=== PATIENT | female | born 1965 | race Caucasian/White ===

== ENCOUNTER 2017-11-04 11:26 | Emergency (ER) | payer OTHER ==
[2017-11-04 11:46] VITALS: BP 105/48
--- NOTE | 2017-11-04 13:26 | RAD ---
HISTORY: Left knee pain, subacute trauma COMPARISONS: July 09, 2013 VIEWS: 4, Frontal, lateral, axial, and oblique views of the left knee FINDINGS: BONE DENSITY: There is diffuse osteopenia. BONES: There is no displaced fracture. JOINTS: There is mild medial compartment joint space narrowing with mild medial compartment and patellofemoral osteophyte formation. There is no suprapatellar joint effusion or lipohemarthrosis. ALIGNMENT: There is no dislocation. SOFT TISSUES: Unremarkable. OTHER FINDINGS: None. IMPRESSION: 1. OSTEOPENIA. 2. MILD OSTEOARTHRITIS. 3. NO ACUTE OSSEOUS INJURY. IF SYMPTOMS PERSIST, RECOMMEND REPEAT IMAGING.
--- NOTE | 2017-11-04 13:48 | UC ---
Knee Pain HPI - HPI Summary HPI Summary: 52 y/o female with knee pain after stepping off a step 3 days ago, no twisting motion, no fall, + mild bruising, pain afterwards, worse with bending, stairs, feels knee "shifted", no instability. no prior knee injuries, works at [employer]. pain at bilateral sides, no bruising, no fever, chillls. - History of Current Complaint Chief Complaint: UCLowerExtremity Stated Complaint: KNEE INJURY Time Seen by Provider: 11/04/17 13:02 Hx Obtained From: Patient Hx Last Menstrual Period: 3 YEARS AGO ?: No Severity Initially: Moderate Severity Currently: Moderate Pain Intensity: 5 Pain Scale Used: 0-10 Numeric - Allergies/Home Medications Allergies/Adverse Reactions: Allergies Allergy/AdvReac Type Severity Reaction Status Date / Time codeine Allergy Itching Verified 11/04/17 11:37 PMH/Surg Hx/FS Hx/Imm Hx Previously Healthy: Yes Other History Of: Negative For: Anticoagulant Therapy - Surgical History Surgical History: Yes Surgery Procedure, Year, and Place: rue n y gastric bypass 2002. tonsils 1977- [facility]. TUMMY TUCK IN 2003. COLON SURGERY FOR BLOCKAGE. SURGERY FOR VARICOSE VEINS- [place]- TOOK LONGER TOO WAKE UP- 11/2014. RIGHT WRIST CARPAL TUNNEL RELEASE AND ULNAR NERVE- 2 YEARS AGO- [facility]. RIGHT KNEE-1982 - Family History Known Family History: Positive: Cardiac Disease - father in 40's of heart disease, PGM in 30's of heart diseas, Other - mother ovarian ca - Social History Alcohol Use: Occasionally Substance Use Type: None Smoking Status (MU): Never Smoked Tobacco - Immunization History Most Recent Tetanus Shot: 2010 Review of Systems Musculoskeletal: Arthralgia, Decreased ROM, Myalgia Is Patient Immunocompromised?: No All Other Systems Reviewed And Are Negative: Yes Physical Exam Triage Information Reviewed: Yes Appearance: Well-Appearing, No Pain Distress, Well-Nourished Vital Signs: Initial Vital Signs Temp 98.4 F 11/04/17 11:39 Pulse 52 11/04/17 11:39 Resp 18 11/04/17 11:39 BP 105/48 11/04/17 11:39 Pulse Ox 98 11/04/17 11:39 Eyes: Positive: Conjunctiva Clear Musculoskeletal: Positive: Other: - + yordan,L, + patellar grind, medial joint line tendernss, mild effusion, no instability mandi/ marnie stress, - ACL, PCL Neurological Exam: Normal Psychological Exam: Normal Skin Exam: Normal Knee Pain Course/Dx - Course Course Of Treatment: likely meniscal tear, medially. Ortho called, patient able to be seen today - Differential Dx/Diagnosis Differential Diagnosis/HQI/PQRI: Cellulitis, Contusion Provider Diagnoses: L knee injury, likely medial meniscus tear. Discharge - Sign-Out/Discharge Documenting (check all that apply): Discharge - Discharge Plan Condition: Good Disposition: HOME Patient Education Materials: Knee Pain (ED), Meniscus Tear (ED) Forms: *Work Release Referrals: Izzy Berman MD [Primary Care Provider] - Landry Zaragoza MD [Medical Doctor] - Additional Instructions: - Motrin 400-600mg every 6 hours as needed for pain - Follow up with orthopedics - Dr. zaragoza, [address] - Ice, Rest - Work note given - Billing Disposition and Condition Condition: GOOD Disposition: HOME
== END 2017-11-04 13:51 | disposition home or self-care (01) ==
LOC: UCEAST 11:26
DX: S89.92XA Unspecified injury of left lower leg, initial encounter (principal); X58.XXXA Exposure to other specified factors, initial encounter; Y93.9 Activity, unspecified; Y92.9 Unspecified place or not applicable; Z88.5 Allergy status to narcotic agent
CPT/HCPCS: 99211; G0463

== ENCOUNTER 2018-06-01 12:10 | Emergency (ER) | payer BC, OTHER ==
[2018-06-01 12:14] VITALS: BP 133/69
--- NOTE | 2018-06-01 12:22 | ED ---
Laceration/Wound HPI - HPI Summary HPI Summary: 52 year old female presents with left thumb laceration today. States she cut it at work on a knife. She states the area is not actively bleeding. Tetanus up-to-date. Has full range of motion of finger. No numbness or tingling. is not diabetic. - History of Current Complaint Stated Complaint: LT THUMB LAC Time Seen by Provider: 06/01/18 12:16 Hx Last Menstrual Period: 3 YEARS AGO Pain Intensity: 2 - Additional Pertinent History Primary Care Physician: SAKSHI - Allergy/Home Medications Allergies/Adverse Reactions: Allergies Allergy/AdvReac Type Severity Reaction Status Date / Time codeine Allergy Itching Verified 06/01/18 12:16 PMH/Surg Hx/FS Hx/Imm Hx Endocrine/Hematology History: Reports: Hx Thyroid Disease - ON MEDICATION FOR, Hx Anemia - STATES TENDS TO BE LOW, BRUISES EASILY Denies: Hx Anticoagulant Therapy, Hx Diabetes Cardiovascular History: Reports: Hx Angina, Hx Hypotension, Other Cardiovascular Problems/Disorders - "HOLE IN HEART" -PATIENT STATES WAS TOLD BY DR. COLLINS Denies: Hx Coronary Artery Disease, Hx Hypercholesterolemia, Hx Hypertension , Hx Myocardial Infarction, Hx Peripheral Vascular Disease Respiratory History: Reports: Hx Sleep Apnea Denies: Hx Asthma, Hx Chronic Obstructive Pulmonary Disease (COPD) GI History: Reports: Hx Jaundice - , Other GI Disorders - gastric bypass 2001 Denies: Hx Ulcer Comment Only: Hx Gall Bladder Disease - removed during gastric bipass, Hx Gastroesophageal Reflux Disease - ACID REFLUX Musculoskeletal History: Reports: Hx Arthritis - RIGHT HAND, Hx Tendonitis - RT ARM Denies: Hx Osteoporosis Sensory History: Reports: Hx Contacts or Glasses - GLASSES Denies: Hx Cataracts, Hx Glaucoma, Hx Hearing Aid Opthamlomology History: Reports: Hx Contacts or Glasses - GLASSES Denies: Hx Cataracts, Hx Glaucoma Neurological History: Reports: Hx Migraine - WEEKLY- TREATS WITH ASPIRIN & AND ROUTINE MEDICATION FOR-hasnt had recently, Hx Seizures - LAST 07/2015- ON MEDICATION FOR Denies: Hx Headaches, Hx Transient Ischemic Attacks (TIA) Psychiatric History: Reports: Hx Anxiety - on medication for, Hx Depression - ON MEDICATION FOR - Cancer History Hx Chemotherapy: No Hx Radiation Therapy: No - Surgical History Surgery Procedure, Year, and Place: rue n y gastric bypass 2002. tonsils 1977- [facility]. TUMMY TUCK IN 2003. COLON SURGERY FOR BLOCKAGE. SURGERY FOR VARICOSE VEINS- [place]- TOOK LONGER TOO WAKE UP- 11/2014. RIGHT WRIST CARPAL TUNNEL RELEASE AND ULNAR NERVE- 2 YEARS AGO- [facility]. RIGHT KNEE-1982 Hx Anesthesia Reactions: Yes - SLOW TO WAKE UP, NAUSEA - Immunization History Date of Tetanus Vaccine: unsure Date of Influenza Vaccine: none Infectious Disease History: No Infectious Disease History: Denies: Hx Hepatitis, Hx Human Immunodeficiency Virus (HIV), Traveled Outside the [place] in Last 30 Days - Family History Known Family History: Positive: Cardiac Disease - father in 40's of heart disease, PGM in 30's of heart diseas, Other - mother ovarian ca - Social History Alcohol Use: Occasionally Hx Substance Use: No Substance Use Type: Reports: None Hx Tobacco Use: No Smoking Status (MU): Never Smoked Tobacco Review of Systems Negative: Fever Negative: Chest Pain Negative: Shortness Of Breath Positive: Myalgia - left laceration thumb All Other Systems Reviewed And Are Negative: Yes Physical Exam Triage Information Reviewed: Yes Vital Signs On Initial Exam: Initial Vitals Temp Pulse Resp BP Pulse Ox 96.6 F 60 16 133/69 98 06/01/18 12:12 06/01/18 12:12 06/01/18 12:12 06/01/18 12:12 06/01/18 12:12 Vital Signs Reviewed: Yes Appearance: Positive: Well-Appearing Skin: Positive: Warm, Dry, Other - 1cm superficial laceration near left nail Head/Face: Positive: Normal Head/Face Inspection Eyes: Positive: Normal, Conjunctiva Clear ENT: Positive: Pharynx normal Respiratory/Lung Sounds: Positive: Clear to Auscultation, Breath Sounds Present Cardiovascular: Positive: Normal, RRR Musculoskeletal: Positive: Normal Neurological: Positive: Normal Psychiatric: Positive: Normal Procedures - Laceration/Wound Repair 1 Location: Other - left thumb laceration Length, Depth and Shape: 1cm superficial Irrigated w/ Saline (ccs): 50 Closure: Skin Adhesive Diagnostics - Vital Signs Vital Signs Temp Pulse Resp BP Pulse Ox 06/01/18 12:12 96.6 F 60 16 133/69 98 - Laboratory Lab Statement: Any lab studies that have been ordered have been reviewed, and results considered in the medical decision making process. Laceration Repair Course/Dx - Course Course Of Treatment: 52 year old female presents with left thumb laceration today. States she cut it at work on a knife. She states the area is not actively bleeding. Tetanus up-to-date. Has full range of motion of finger. No numbness or tingling. On exam has 1cm superficial laceration to left thumb. Clean area and place glued. Told to keep the area clean dry. Patient since agrees with plan. - Differential Dx Differental Diagnoses: Abrasion, Avulsion, Laceration - Clinical Impression Provider Diagnoses: Laceration of left thumb Discharge - Sign-Out/Discharge Documenting (check all that apply): Patient Departure - Discharge Plan Condition: Good Disposition: HOME Patient Education Materials: Skin Adhesive Care (ED) Forms: *Work Release Referrals: Izzy Berman MD [Primary Care Provider] - Additional Instructions: Take Tylenol or ibuprofen for pain as needed every 6 hours Keep dry for 24 hours Glue will fall off on own Avoid scrubbing area Return to ED if develop any signs of infection or any new or worsening symptoms - Billing Disposition and Condition Condition: GOOD Disposition: Home
== END 2018-06-01 12:35 | disposition home or self-care (01) ==
LOC: ED 12:10
DX: S61.012A Laceration without foreign body of left thumb without damage to nail, initial encounter (principal); W26.0XXA Contact with knife, initial encounter; Y92.9 Unspecified place or not applicable; Y99.0 Civilian activity done for income or pay; E07.9 Disorder of thyroid, unspecified; D64.9 Anemia, unspecified
CPT/HCPCS: 12001; 99281

== ENCOUNTER 2018-08-13 06:50 | Emergency (ER) | payer BC ==
[2018-08-13] MEDS ORDERED: Ondansetron ODT TAB* 4 MG ONE (07:19)
[2018-08-13] MEDS ORDERED: Ondansetron ODT TAB* 4 MG SL ONE (07:19)
--- NOTE | 2018-08-13 07:25 | ED ---
Laceration/Wound HPI - HPI Summary HPI Summary: Patient presents with laceration to the R dorsal side of the first MCP measuring 1.5cm and irregular from a broken glass. This occurred at 9pm last evening. Bleeding was controlled. Endorses 5/10 pain only when palpated. Denies N/T. Denies color or temp changes. NV intact. Denies other concerns or complaints today. Tetanus UTD x 5 years ago. No anti-coag. - History of Current Complaint Stated Complaint: RIGHT HAND LAC Time Seen by Provider: 08/13/18 06:56 Hx Obtained From: Patient Hx Last Menstrual Period: 3 YEARS AGO Mechanism of Injury: Sharp/Blunt Trauma Onset/Duration: Sudden Onset Aggravating: Movement Alleviating: Compression Timing: Constant Onset Severity: Mild Current Severity: Mild Pain Intensity: 7 Pain Scale Used: 0-10 Numeric Associated Signs & Symptoms: Negative Related Hx: Dominant Hand (Right) - Additional Pertinent History Primary Care Physician: SAKSHI - Allergy/Home Medications Allergies/Adverse Reactions: Allergies Allergy/AdvReac Type Severity Reaction Status Date / Time codeine Allergy Itching Verified 08/13/18 06:58 PMH/Surg Hx/FS Hx/Imm Hx Previously Healthy: Yes Endocrine/Hematology History: Reports: Hx Thyroid Disease - ON MEDICATION FOR, Hx Anemia - STATES TENDS TO BE LOW, BRUISES EASILY Denies: Hx Anticoagulant Therapy, Hx Diabetes Cardiovascular History: Reports: Hx Angina, Hx Hypotension, Other Cardiovascular Problems/Disorders - "HOLE IN HEART" -PATIENT STATES WAS TOLD BY DR. COLLINS Denies: Hx Coronary Artery Disease, Hx Hypercholesterolemia, Hx Hypertension , Hx Myocardial Infarction, Hx Peripheral Vascular Disease Respiratory History: Reports: Hx Sleep Apnea Denies: Hx Asthma, Hx Chronic Obstructive Pulmonary Disease (COPD) GI History: Reports: Hx Jaundice - INFANT, Other GI Disorders - gastric bypass 2001 Denies: Hx Ulcer Comment Only: Hx Gall Bladder Disease - removed during gastric bipass, Hx Gastroesophageal Reflux Disease - ACID REFLUX Musculoskeletal History: Reports: Hx Arthritis - RIGHT HAND, Hx Tendonitis - RT ARM Denies: Hx Osteoporosis Sensory History: Reports: Hx Contacts or Glasses - GLASSES Denies: Hx Cataracts, Hx Glaucoma, Hx Hearing Aid Opthamlomology History: Reports: Hx Contacts or Glasses - GLASSES Denies: Hx Cataracts, Hx Glaucoma Neurological History: Reports: Hx Migraine - WEEKLY- TREATS WITH ASPIRIN & AND ROUTINE MEDICATION FOR-hasnt had recently, Hx Seizures - LAST 07/2015- ON MEDICATION FOR Denies: Hx Headaches, Hx Transient Ischemic Attacks (TIA) Psychiatric History: Reports: Hx Anxiety - on medication for, Hx Depression - ON MEDICATION FOR - Cancer History Hx Chemotherapy: No Hx Radiation Therapy: No - Surgical History Surgery Procedure, Year, and Place: rue n y gastric bypass 2002. tonsils 1977- [facility]. TUMMY TUCK IN 2003. COLON SURGERY FOR BLOCKAGE. SURGERY FOR VARICOSE VEINS- [place]- TOOK LONGER TOO WAKE UP- 11/2014. RIGHT WRIST CARPAL TUNNEL RELEASE AND ULNAR NERVE- 2 YEARS AGO- [facility]. RIGHT KNEE-1982 Hx Anesthesia Reactions: Yes - SLOW TO WAKE UP, NAUSEA - Immunization History Date of Tetanus Vaccine: unsure Date of Influenza Vaccine: none Hx Pertussis Vaccination: No Immunizations Up to Date: Yes Infectious Disease History: No Infectious Disease History: Denies: Hx Hepatitis, Hx Human Immunodeficiency Virus (HIV), Traveled Outside the [place] in Last 30 Days - Family History Known Family History: Positive: Cardiac Disease - father in 40's of heart disease, PGM in 30's of heart diseas, Other - mother ovarian ca - Social History Occupation: Employed Full-time Lives: With Family Alcohol Use: Occasionally Hx Substance Use: No Substance Use Type: Reports: None Hx Tobacco Use: No Smoking Status (MU): Never Smoked Tobacco Review of Systems Negative: Fever, Chills, Fatigue, Skin Diaphoresis Negative: Palpitations, Chest Pain Negative: Shortness Of Breath, Cough Genitourinary: Negative Positive: no symptoms reported, see HPI Negative: Arthralgia, Myalgia Skin: Negative Neurological: Negative All Other Systems Reviewed And Are Negative: Yes Physical Exam Triage Information Reviewed: Yes Vital Signs On Initial Exam: Initial Vitals Temp Pulse Resp BP Pulse Ox 97.8 F 57 16 116/57 97 08/13/18 06:50 08/13/18 06:50 08/13/18 06:50 08/13/18 06:50 08/13/18 06:50 Vital Signs Reviewed: Yes Appearance: Positive: Well-Appearing, Well-Nourished Skin: Positive: Skin Color Reflects Adequate Perfusion Head/Face: Positive: Normal Head/Face Inspection Eyes: Positive: EOMI, CHRISTIAN, Conjunctiva Clear Neck: Positive: Supple, No Lymphadenopathy Respiratory/Lung Sounds: Positive: Clear to Auscultation, Breath Sounds Present Cardiovascular: Positive: RRR, Pulses are Symmetrical in both Upper and Lower Extremities Musculoskeletal: Positive: Normal, Strength/ROM Intact Neurological: Positive: Speech Normal Psychiatric: Positive: Normal, Affect/Mood Appropriate AVPU Assessment: Alert Procedures - Laceration/Wound Repair 1 Location: upper extremity Description: Irregular Anesthesia: Local Length, Depth and Shape: 1.5cm, semi-circular Betadine Prep?: No Laceration/Wound Explored: clean Suture Type: Prolene Number of Sutures: 3 Layer Closure?: No Sterile Dressing Applied?: No Diagnostics - Vital Signs Vital Signs Temp Pulse Resp BP Pulse Ox 08/13/18 06:50 97.8 F 57 16 116/57 97 - Laboratory Lab Statement: Any lab studies that have been ordered have been reviewed, and results considered in the medical decision making process. Laceration Repair Course/Dx - Course Course Of Treatment: Timeout obtained. Cleansed wound thoroughly with NS. Jet irrigation. Laceration repaired with 5-0 sutures. Adequate local anesthesia. 3 sutures placed. Patient became nauseous and diaphoretic, placed in supine position and patient improved. Suture removal in 6 days. Patient agrees with plan. - Differential Dx Differental Diagnoses: Avulsion, Laceration - Clinical Impression Provider Diagnoses: Laceration Discharge - Sign-Out/Discharge Documenting (check all that apply): Patient Departure - Discharge Plan Condition: Stable Disposition: HOME Patient Education Materials: Laceration (ED), Care For Your Stitches (ED) Forms: *Work Release Referrals: Izzy Berman MD [Primary Care Provider] - Additional Instructions: After 24 hours, leave open to air Cleanse wound gently everyday with soap and water Use gloves if you are working Suture removal in 5-7 days If the area becomes dry, you may apply some antibiotic ointment. - Billing Disposition and Condition Condition: STABLE Disposition: Home
[2018-08-13 07:42] VITALS: BP 129/40
== END 2018-08-13 07:41 | disposition home or self-care (01) ==
LOC: ED 06:50
DX: S61.411A Laceration without foreign body of right hand, initial encounter (principal); W25.XXXA Contact with sharp glass, initial encounter; E07.9 Disorder of thyroid, unspecified; D64.9 Anemia, unspecified; K21.9 Gastro-esophageal reflux disease without esophagitis; G47.30 Sleep apnea, unspecified; F41.9 Anxiety disorder, unspecified; F32.9 Major depressive disorder, single episode, unspecified
CPT/HCPCS: 12001; 99282; A9270-GY

== ENCOUNTER 2018-08-17 13:51 | Emergency (ER) | payer BC ==
--- NOTE | 2018-08-17 15:15 | ED ---
Laceration/Wound HPI - HPI Summary HPI Summary: Patient is a 53-year-old female presents to the ED with laceration removal request. She had 3 sutures placed 6 days ago. Denies any redness. Denies any drainage. Denies any fevers, sweats, chills. She offers no other complaints at this time. - History of Current Complaint Stated Complaint: SUTURE REMOVAL Time Seen by Provider: 08/17/18 13:53 Hx Obtained From: Patient Hx Last Menstrual Period: 3 YEARS AGO Mechanism of Injury: Sharp/Blunt Trauma Onset/Duration: Sudden Onset Aggravating: Movement Alleviating: Compression Timing: Constant Onset Severity: Mild Current Severity: None Pain Intensity: 0 Pain Scale Used: 0-10 Numeric Associated Signs & Symptoms: Negative - Additional Pertinent History Primary Care Physician: SAKSHI - Allergy/Home Medications Allergies/Adverse Reactions: Allergies Allergy/AdvReac Type Severity Reaction Status Date / Time codeine Allergy Itching Verified 08/17/18 13:55 PMH/Surg Hx/FS Hx/Imm Hx Previously Healthy: Yes Endocrine/Hematology History: Reports: Hx Thyroid Disease - ON MEDICATION FOR, Hx Anemia - STATES TENDS TO BE LOW, BRUISES EASILY Denies: Hx Anticoagulant Therapy, Hx Diabetes Cardiovascular History: Reports: Hx Angina, Hx Hypotension, Other Cardiovascular Problems/Disorders - "HOLE IN HEART" -PATIENT STATES WAS TOLD BY DR. COLLINS Denies: Hx Coronary Artery Disease, Hx Hypercholesterolemia, Hx Hypertension , Hx Myocardial Infarction, Hx Peripheral Vascular Disease Respiratory History: Reports: Hx Sleep Apnea Denies: Hx Asthma, Hx Chronic Obstructive Pulmonary Disease (COPD) GI History: Reports: Hx Jaundice - INFANT, Other GI Disorders - gastric bypass 2001 Denies: Hx Ulcer Comment Only: Hx Gall Bladder Disease - removed during gastric bipass, Hx Gastroesophageal Reflux Disease - ACID REFLUX Musculoskeletal History: Reports: Hx Arthritis - RIGHT HAND, Hx Tendonitis - RT ARM Denies: Hx Osteoporosis Sensory History: Reports: Hx Contacts or Glasses - GLASSES Denies: Hx Cataracts, Hx Glaucoma, Hx Hearing Aid Opthamlomology History: Reports: Hx Contacts or Glasses - GLASSES Denies: Hx Cataracts, Hx Glaucoma Neurological History: Reports: Hx Migraine - WEEKLY- TREATS WITH ASPIRIN & AND ROUTINE MEDICATION FOR-hasnt had recently, Hx Seizures - LAST 07/2015- ON MEDICATION FOR Denies: Hx Headaches, Hx Transient Ischemic Attacks (TIA) Psychiatric History: Reports: Hx Anxiety - on medication for, Hx Depression - ON MEDICATION FOR - Cancer History Hx Chemotherapy: No Hx Radiation Therapy: No - Surgical History Surgery Procedure, Year, and Place: rue n y gastric bypass 2002. tonsils 1977- [facility]. TUMMY TUCK IN 2003. COLON SURGERY FOR BLOCKAGE. SURGERY FOR VARICOSE VEINS- [place]- TOOK LONGER TOO WAKE UP- 11/2014. RIGHT WRIST CARPAL TUNNEL RELEASE AND ULNAR NERVE- 2 YEARS AGO- [facility] [place]. RIGHT KNEE-1982 Hx Anesthesia Reactions: Yes - SLOW TO WAKE UP, NAUSEA - Immunization History Date of Tetanus Vaccine: unsure Date of Influenza Vaccine: none Infectious Disease History: No Infectious Disease History: Denies: Hx Hepatitis, Hx Human Immunodeficiency Virus (HIV), Traveled Outside the [place] in Last 30 Days - Family History Known Family History: Positive: Cardiac Disease - father in 40's of heart disease, PGM in 30's of heart diseas, Other - mother ovarian ca - Social History Alcohol Use: Occasionally Hx Substance Use: No Substance Use Type: Reports: None Hx Tobacco Use: No Smoking Status (MU): Never Smoked Tobacco Review of Systems All Other Systems Reviewed And Are Negative: Yes Physical Exam Vital Signs On Initial Exam: Initial Vitals Temp Pulse Resp BP Pulse Ox 97.9 F 57 15 117/57 100 08/17/18 13:53 08/17/18 13:53 08/17/18 13:53 08/17/18 13:53 08/17/18 13:53 Diagnostics - Vital Signs Vital Signs Temp Pulse Resp BP Pulse Ox 08/17/18 13:53 97.9 F 57 15 117/57 100 - Laboratory Lab Statement: Any lab studies that have been ordered have been reviewed, and results considered in the medical decision making process. Laceration Repair Course/Dx - Course Course Of Treatment: 3 sutures removed. Patient tolerated well. - Clinical Impression Provider Diagnoses: Visit for suture removal Discharge - Sign-Out/Discharge Documenting (check all that apply): Patient Departure - Discharge Plan Condition: Stable Disposition: HOME Referrals: Izzy Berman MD [Primary Care Provider] - - Billing Disposition and Condition Condition: STABLE Disposition: Home
[2018-08-17 15:44] VITALS: BP 00/00
== END 2018-08-17 15:16 | disposition home or self-care (01) ==
LOC: ED 13:51
DX: S61.411D Laceration without foreign body of right hand, subsequent encounter (principal); W25.XXXD Contact with sharp glass, subsequent encounter; E07.9 Disorder of thyroid, unspecified; Z88.5 Allergy status to narcotic agent

== ENCOUNTER 2018-09-11 10:03 | Observation (INO) | payer BC ==
[2018-09-11 11:07] LABS: ABS Basophils 0 10^3/ul (0-0.2); ABS Eosinophils 0.2 10^3/ul (0-0.6); ABS Lymphocytes 1.4 10^3/ul (1.0-4.8); ABS Monocytes 0.3 10^3/ul (0-0.8); ABS Nucleated RBC 0 10^3/ul; Eosinophil % 5.2 %; Hematocrit 37 % (35-47); Hemoglobin 12.7 g/dl (12.0-16.0); Lymphocyte % 36.6 %; Mean Corpuscular HGB Conc 34 g/dl (31-36); Mean Corpuscular Hemoglobin 34 pg (27-31); Mean Corpuscular Volume 98 fL (80-97); Mean Platelet Volume 7.7 fL (7.4-10.4); Nucleated Red Blood Cells % 0; Platelet Count 186 10^3/ul (150-450); Red Blood Count 3.78 10^6/ul (4.00-5.40); Red Cell Distribution Width 13 % (10.5-15); White Blood Count 3.9 10^3/ul (3.5-10.8)
--- NOTE | 2018-09-11 11:22 | ED ---
HPI Chest Pain - HPI Summary HPI Summary: A 53 y/o female presents to the ED c/o non-radiating mid-sternal chest pain reaching 6/10 in severity. In the ED room, the patient has a pulse of 48 BPM, O2 saturation of 97%, and blood pressure of 126/61. As per triage, "Pt states SOB and substernal CP w/ inspiration. Pt states occasional nonproductive cough, states chills, thinks she may have pnuemonia". According to the patient, she has been experiencing chills and coughing since Friday, however, she stated that on Friday when she was shoveling snow she started experiencing mid-sternal chest pain when she coughed or took deep breaths. She noted that her cough in non-productive, and denies any fever, hot flashes, or swelling in calf. She additionally denies any dizziness, weakness, and rhinorrhea. She noted that she noticed the chest pain when she was shoveling snow around her car, but thought the cough and chest pain came from breathing in cold air. The chest pain is aggravated by deep breaths and coughing, but she still has chest pain upon rest. Patient has no surgery recently, or has not traveled in a car for longer than an hour. FHx of MT and thrombosis. PMHx of stress test. Patient has not taken Aspirin, but takes medications for her thyroid and takes antidepressants. No smoking. PCP is Dr. Berman. - History of Current Complaint Chief Complaint: EDFluSymptoms Time Seen by Provider: 09/11/18 10:22 Hx Obtained From: Patient Hx Last Menstrual Period: 3 YEARS AGO Onset/Duration: Started Days Ago, Still Present Timing: Constant, Lasting Days Initial Severity: Moderate Current Severity: Moderate Pain Intensity: 4 Pain Scale Used: 0-10 Numeric Chest Pain Location: Mid Sternal Chest Pain Radiates: No Character: Cough, Non-Productive Aggravating Factor(s): Deep Breaths, Other: - COUGH Alleviating Factor(s): Nothing Associated Signs and Symptoms: Positive: Chest Pain, Cough, Nonproductive Cough. Negative: Weakness, Dizziness - Additional Pertinent History Primary Care Physician: [id number] - Allergy/Home Medications Allergies/Adverse Reactions: Allergies Allergy/AdvReac Type Severity Reaction Status Date / Time codeine Allergy Itching Verified 09/11/18 10:10 PMH/Surg Hx/FS Hx/Imm Hx Endocrine/Hematology History: Reports: Hx Thyroid Disease - ON MEDICATION FOR, Hx Anemia - STATES TENDS TO BE LOW, BRUISES EASILY Denies: Hx Anticoagulant Therapy, Hx Diabetes Cardiovascular History: Reports: Hx Angina, Hx Hypotension, Other Cardiovascular Problems/Disorders - "HOLE IN HEART" -PATIENT STATES WAS TOLD BY DR. COLLINS Denies: Hx Coronary Artery Disease, Hx Hypercholesterolemia, Hx Hypertension , Hx Myocardial Infarction, Hx Peripheral Vascular Disease Respiratory History: Reports: Hx Sleep Apnea Denies: Hx Asthma, Hx Chronic Obstructive Pulmonary Disease (COPD) GI History: Reports: Hx Jaundice - INFANT, Other GI Disorders - gastric bypass 2001 Denies: Hx Ulcer Comment Only: Hx Gall Bladder Disease - removed during gastric bipass, Hx Gastroesophageal Reflux Disease - ACID REFLUX Musculoskeletal History: Reports: Hx Arthritis - RIGHT HAND, Hx Tendonitis - RT ARM Denies: Hx Osteoporosis Sensory History: Reports: Hx Contacts or Glasses - GLASSES Denies: Hx Cataracts, Hx Glaucoma, Hx Hearing Aid Opthamlomology History: Reports: Hx Contacts or Glasses - GLASSES Denies: Hx Cataracts, Hx Glaucoma Neurological History: Reports: Hx Migraine - WEEKLY- TREATS WITH ASPIRIN & AND ROUTINE MEDICATION FOR-hasnt had recently, Hx Seizures - LAST 07/2015- ON MEDICATION FOR Denies: Hx Headaches, Hx Transient Ischemic Attacks (TIA) Psychiatric History: Reports: Hx Anxiety - on medication for, Hx Depression - ON MEDICATION FOR - Cancer History Hx Chemotherapy: No Hx Radiation Therapy: No - Surgical History Surgery Procedure, Year, and Place: rue n y gastric bypass 2002. tonsils 1977- . TUMMY TUCK IN 2003. COLON SURGERY FOR BLOCKAGE. SURGERY FOR VARICOSE VEINS- [place]- TOOK LONGER TOO WAKE UP- 11/2014. RIGHT WRIST CARPAL TUNNEL RELEASE AND ULNAR NERVE- 2 YEARS AGO- [facility]. RIGHT KNEE-1982 Hx Anesthesia Reactions: Yes - SLOW TO WAKE UP, NAUSEA - Immunization History Date of Tetanus Vaccine: unsure Date of Influenza Vaccine: none Infectious Disease History: No Infectious Disease History: Denies: Hx Hepatitis, Hx Human Immunodeficiency Virus (HIV), Traveled Outside the [place] in Last 30 Days - Family History Known Family History: Positive: Cardiac Disease - father in 40's of heart disease, PGM in 30's of heart diseas, Other - mother ovarian ca - Social History Alcohol Use: Occasionally Hx Substance Use: No Substance Use Type: Reports: None Hx Tobacco Use: No Smoking Status (MU): Never Smoked Tobacco Review of Systems Positive: Chills, Other - NEGATIVE: HOT FLASHES. Negative: Fever Negative: Erythema Negative: Sore Throat, Nasal Discharge - NEGATIVE: RHINORRHEA Positive: Chest Pain Positive: Shortness Of Breath, Cough Negative: Abdominal Pain, Vomiting, Nausea Negative: dysuria, hematuria Negative: Myalgia, Edema Negative: Rash Neurological: Other - NEGATIVE: DIZZINESS Negative: Weakness All Other Systems Reviewed And Are Negative: Yes Physical Exam - Summary Physical Exam Summary: Constitutional: Well-developed, Well-nourished, Alert. (-) Distressed Skin: Warm, Dry HENT: Normocephalic; Atraumatic Eyes: Conjunctiva normal Neck: Musculoskeletal ROM normal neck. (-) JVD, (-) Stridor, (-) Tracheal deviation Cardio: Rhythm regular, rate normal, Heart sounds normal; Intact distal pulses; The pedal pulses are 2+ and symmetric. Radial pulses are 2+ and symmetric. (-) Murmur Pulmonary/Chest wall: Effort normal. (-) Respiratory distress, (-) Wheezes, (-) Rales Abd: Soft, (-) epigastric tenderness, (-) Distension, (-) Guarding, (-) Rebound Musculoskeletal: (-) Edema, mild costochondral tenderness bilaterally Lymph: (-) Cervical adenopathy Neuro: Alert, Oriented x3 Psych: Mood and affect Normal Triage Information Reviewed: Yes Vital Signs On Initial Exam: Initial Vitals Temp Pulse Resp BP Pulse Ox 97.4 F 54 20 130/74 97 09/11/18 10:07 09/11/18 10:07 09/11/18 10:07 09/11/18 10:07 09/11/18 10:07 Vital Signs Reviewed: Yes Diagnostics - Vital Signs Vital Signs Temp Pulse Resp BP Pulse Ox 09/11/18 10:33 51 20 131/50 99 09/11/18 10:18 53 97 09/11/18 10:07 97.4 F 54 20 130/74 97 - Laboratory Lab Results: Lab Results 09/11/18 Range/Units 10:46 WBC 3.9 (3.5-10.8) 10^3/ul RBC 3.78 L (4.00-5.40) 10^6/ul Hgb 12.7 (12.0-16.0) g/dl Hct 37 (35-47) % MCV 98 H (80-97) fL MCH 34 H (27-31) pg MCHC 34 (31-36) g/dl RDW 13 (10.5-15) % Plt Count 186 (150-450) 10^3/ul MPV 7.7 (7.4-10.4) fL Neut % (Auto) 50.6 % Lymph % (Auto) 36.6 % Newton % (Auto) 6.8 % Eos % (Auto) 5.2 % Baso % (Auto) 0.8 % Absolute Neuts (auto) 2.0 (1.5-7.7) 10^3/ul Absolute Lymphs (auto) 1.4 (1.0-4.8) 10^3/ul Absolute Monos (auto) 0.3 (0-0.8) 10^3/ul Absolute Eos (auto) 0.2 (0-0.6) 10^3/ul Absolute Basos (auto) 0 (0-0.2) 10^3/ul Absolute Nucleated RBC 0 10^3/ul Nucleated RBC % 0 Result Diagrams: 09/11/18 10:46 09/11/18 10:46 Lab Statement: Any lab studies that have been ordered have been reviewed, and results considered in the medical decision making process. - Radiology CXR Radiology Interpretation Completed By: Radiologist Summary of Radiographic Findings: NO ACTIVE CARDIOPULMONARY DISEASE IS NOTED. ED PHYSICIAN REVIEWED THIS RADIOLOGY REPORT. - EKG 1027 Cardiac Rate: Bradycardia - 50 BPM EKG Rhythm: Sinus Bradycardia - 50 BPM Summary of EKG Findings: NEGATIVE STEMI. Chest Pain Course/Dx - Course Course Of Treatment: A 53 y/o female presents to the ED c/o non-radiating mid- sternal chest pain reaching 6/10 in severity. In the ED room, the patient has a pulse of 48 BPM, O2 saturation of 97%, and blood pressure of 126/61. According to the patient, she has been experiencing chills and coughing since Friday, however, she stated that on Friday when she was shoveling snow she started experiencing mid-sternal chest pain when she coughed or took deep breaths. Physical examination findings significant for mild costochondral tenderness bilaterally. Assssment/Plan revealed that patient has exertional chest pain with strong family history of fatal heart disease at a young age. Patients chest pain proceeded with cough. A CXR revealed no active cardiopulmonary disease. An EKG revealed sinus bradycardia of 50 BPM, negative STEMI. Hematology , coagulation, and Chemistry screens were done. No significant laboratory abnormalities were found except hyperglycemia of 106 mg/dL. Troponin I was 0.00. D-Dimer was negative. In the ED course, the patient received Aspirin and NTG. Patient care was discussed with hospitalist, Dr. Geovanny Fermin, who accepts patient for admission. Patient will be admitted with a diagnosis of chest pain. Patient is agreeable with this plan. . - Diagnoses Provider Diagnoses: Chest pain - Provider Notifications Discussed Care Of Patient With: Geovanny Fermin Time Discussed With Above Provider: 11:45 Instructed by Provider To: Other - ACCEPTS PATIENT FOR ADMISSION. Discharge - Sign-Out/Discharge Documenting (check all that apply): Patient Departure - ADMIT, Sign-Out Patient - NIKKY Signing out patient TO: Geovanny Fermin Receiving patient FROM: Teo Segura - Discharge Plan Condition: Stable Disposition: ADMITTED TO [facility] Referrals: Izzy Berman MD [Primary Care Provider] - - Attestation Statements Document Initiated by Scribe: Yes Documenting Scribe: Wade Osorio Provider For Whom Scribe is Documenting (Include Credential): Teo Segura MD Scribe Attestation: Wade Hargrove, scribed for Teo Segura MD on 09/11/18 at 1252. Status of Scribe Document: Ready
[2018-09-11 11:25] LABS: ALT 11 U/L (7-52); AST 23 U/L (13-39); Albumin 4.1 g/dL (3.2-5.2); Albumin/Globulin Ratio 1.7 (1-3); Alkaline Phosphatase 64 U/L (34-104); Anion Gap 6 mmol/L (2-11); BUN/Creatinine Ratio 28.3 (8-20); Blood Urea Nitrogen 17 mg/dL (6-24); CO2 Carbon Dioxide 29 mmol/L (22-32); Chloride 105 mmol/L (101-111); EGFR African American 126.1 (>60); EGFR Non-African American 104.2 (>60); Globulin 2.4 g/dL (2-4); Glucose 106 mg/dL (70-100); Sodium 140 mmol/L (135-145); Total Protein 6.5 g/dL (6.4-8.9)
[2018-09-11] MEDS ORDERED: Aspirin 81 mg CHEW TAB* 81 MG TAB.CHEW PO ONE (11:47)
[2018-09-11] MEDS ORDERED: Nitroglycerin TAB 0.4 MG* 0.4 MG TAB SL ONE (11:47)
[2018-09-11] MEDS ORDERED: Ondansetron INJ* 2 MG/ML VIAL IV PRN (12:32)
[2018-09-11] MEDS ORDERED: Acetaminophen TAB* 325 MG PO PRN (12:32)
[2018-09-11 12:52] LABS: C Reactive Protein < 1.00 mg/L (<8.01)
[2018-09-11] MEDS ORDERED: Aspirin EC TAB* 81 MG TAB.EC PO SCH (13:00)
[2018-09-11 13:21] LABS: Influenza A Molecular NEGATIVE (Negative); Influenza B Molecular NEGATIVE (Negative)
[2018-09-11 13:43] LABS: TSH (Thyroid Stimulating Horm) 1.05 mcIU/mL (0.34-5.60)
[2018-09-11] MEDS: Heparin VIAL(*) 5000 UNITS/ML VIAL (FIVE THOUSAND) SUBCUT SCH ×2 (14:10→21:25)
[2018-09-11 14:42] LABS: Activated Partial Thrombo Time 28.4 seconds (26.0-36.3); INR 0.9 (0.77-1.02)
--- NOTE | 2018-09-11 14:57 | HP ---
AMENDED REPORT NOW INCLUDES DESIGNATED COSIGNER CC: Dr. Berman * HISTORY AND PHYSICAL: DATE OF ADMISSION: 09/11/18 PRIMARY CARE PROVIDER: Dr. Berman. ATTENDING PHYSICIAN WHILE IN THE HOSPITAL: Dr. Geovanny Fermin * (report dictated by Bertin Mckee NP) CHIEF COMPLAINT: Chest pain. HISTORY OF PRESENT ILLNESS: Mrs. Chang is a 53-year-old female patient who carries a history of depression, PTSD, complex regional pain syndrome to the right arm, LYLA. She is not compliant with her mask, who comes in to our ER today stating that she on Friday was shoveling snow. While doing this, shortly after, she noticed she had some chest pressure. She described this pressure that got worse with taking a deep breath. She thought it was related to the cold air. She felt like her wind was taken away. She states that throughout the week, she had not been getting any better. She has noticed that she has developed a cough. Denied having any rhinorrhea or sore throat. Does state that she has been chilled ever since shoveling on Friday. She has not been feeling well. She does admit to still having some intermittent chest discomfort that she describes as a pressure that is worse with taking a deep breath or when she coughs and she says her chest has been feeling tender. She denies having any documented fevers. She denied having any other associated symptoms like arthralgias or myalgias. There was no recent sick contacts reported. She denied having any abdominal discomfort, vomiting or diarrhea. She states her appetite has been down. She just has not been feeling well. She was concerned because of the fact of the chest pain and she has a significant family history, so she decided to come into our ER to be evaluated. She says the pain has not been occurring with exertion. It is mostly occurring with taking a deep breath and coughing. PAST MEDICAL HISTORY: Significant for: 1. Depression. 2. PTSD. 3. Complex regional pain syndrome to her right arm. 4. LYLA. 5. Hypothyroidism. PAST SURGICAL HISTORY: 1. She has had Ximena-en-Y bypass. 2. Tonsillectomy. 3. She has had a cosmetic surgery to her stomach. 4. Cholecystectomy. 5. Knee arthroplasty. 6. Lysis of adhesions. 7. Carpal tunnel. 8. She has had right arm surgery x3. MEDICATIONS: Home meds according to the list provided include: 1. MiraLAX 17 g p.o. daily as needed. 2. Prilosec 40 mg daily. 3. Synthroid 150 mcg daily. 4. Ferrous sulfate 325 mg daily. 5. Lexapro 20 mg daily. 6. Wellbutrin 150 mg p.o. daily. ALLERGIES: Her allergies to medications include CODEINE. FAMILY HISTORY: Mother is a diabetic. Her father had a history of an AK in his 50s. Her paternal grandmother had an AK in her 30s and her brother and her sister, both had MIs at early age as well. SOCIAL HISTORY: She does not smoke. She occasionally drinks alcohol. Surrogate decision maker is her daughter. REVIEW OF SYSTEMS: There is no documented fever. She does admit to having chills. She denies having any significant weight change. There is no ear discharge. She denied having any rhinorrhea. She denied having any sore throat. There was no thyroid enlargement, but she does admit to having chest pain from her HPI. She denies having any abdominal pain. There was no nausea. There is no vomiting. She denies having any dysuria. There is no frequency. There is no seizure. There was no loss of consciousness. No pruritus, and no skin ulcerations. Review of 14 systems completed, all others negative. PHYSICAL EXAMINATION GENERAL: At this time, Ms. Chang is a 53-year-old female patient. She is sitting in the ED stretcher. She does not appear to be in any acute distress. She appears to be well-nourished and well-developed. VITAL SIGNS: Blood pressure 133/69, pulse of 50, respirations 18, O2 saturation 97%, temperature of 97.4. HEENT: Head: Atraumatic and normocephalic. Eyes: EOMs are intact. Sclerae anicteric, and not pale. Throat: Oral mucosa appears to be moist. No oropharyngeal erythema. NECK: Supple. LUNGS: Clear to auscultation. No wheezes, rales or rhonchi. HEART: Sounds S1, S2. There was regular rate and rhythm. No murmurs, rubs or gallops. She does have tenderness palpated to her chest. ABDOMEN: Soft, flat, nontender. Bowel sounds were present. EXTREMITIES: Pulses were 2+ throughout. She is moving all 4 extremities with 5 /5 strength. NEUROLOGIC: The patient is awake. She is alert. She is oriented x3. Tongue midline. Singing Waiter Or Waitress are equal. She had no gross focal deficits. SKIN: Intact. DIAGNOSTIC STUDIES/LAB DATA: Labs today revealed a WBC of 3,9, RBC of 3.78, hemoglobin of 12.7, hematocrit of 37, platelet count 186. D-dimer is less than 200. Sodium was 140, potassium 4.0, chloride of 105, bicarb was 29, BUN 17 , creatinine of 0.60, glucose of 106, lactate 0.7, calcium 9.0. Total bili 0.4 , AST 23, ALT 11, alk phos 54. Troponin 0.00. Albumin 4.1. She had an EKG obtained today, which shows a sinus bradycardia with a rate of 50. She had no ST elevation or T-wave inversion noted. When we reviewed the previous EKG, it is similar. Heart rate then was 59. Chest x-ray obtained today which revealed no active cardiopulmonary disease noted. ASSESSMENT AND PLAN: Mrs. Chang is a 53-year-old female patient coming into the ED today with complaints of a chest discomfort. Because of this we were asked to evaluate for admission. She will be admitted under inpatient status for: 1. Chest discomfort and pain, this is atypical. She does have a risk factor with her family history, but per herself she has no significant risk factors. I think she would benefit from three troponins, overnight observation in telemetry, EKG in the morning. Check lipid, panel, A1c. I will start aspirin while she is here, but again if her troponins are negative, then she probably does not need to continue this. I would go ahead and check an ESR and CRP and the flu swab as this sounds like this could be pleuritic. She may have a viral illness that may be causing her some costochondritis. If her troponins are negative, I would consider giving her a dose of Toradol and see if that helps her, but at this point, we will continue to monitor her. She probably will benefit from outpatient stress test at some point. Her last stress test was 3 years ago. 2. Depression. Continue supportive care. 3. Posttraumatic stress disorder. Continue meds as prescribed. 4. History of complex regional pain syndrome, p.r.n. Tylenol has been ordered and we will continue with supportive care as well as they have ordered CPAP. 5. Hypothyroidism. Go ahead and we will check her TSH. Continue her on her Synthroid. 6. DVT prophylaxis: She is moderate risk, placed on heparin subcu. 7. Code status: She is a full code. 8. Fluids, electrolytes, and nutrition: She can have a heart-healthy diet. TIME SPENT: Time spent on admission was 60 minutes, greater than half of the time was spent [id number] with the patient obtaining my history and physical, other half of the time was spent going over the plan of care with the patient and implementing plan of care. I did discuss the plan of care with my attending, Dr. Fermin; she is in agreement. BERTIN MCKEE, HERBERT [id number]/[facility] #: [id number] MTDD
[2018-09-11 15:29] LABS: Erythrocyte Sed Rate 15 mm/Hr (0-30)
[2018-09-12] MEDS: Heparin VIAL(*) 5000 UNITS/ML VIAL (FIVE THOUSAND) SUBCUT SCH (05:06)
[2018-09-12 05:24] LABS: ABS Basophils 0 10^3/ul (0-0.2); ABS Eosinophils 0.2 10^3/ul (0-0.6); ABS Lymphocytes 1.6 10^3/ul (1.0-4.8); ABS Monocytes 0.2 10^3/ul (0-0.8); ABS Nucleated RBC 0 10^3/ul; Eosinophil % 6.9 %; Hematocrit 34 % (35-47); Hemoglobin 11.6 g/dl (12.0-16.0); Lymphocyte % 51.9 %; Mean Corpuscular HGB Conc 34 g/dl (31-36); Mean Corpuscular Hemoglobin 34 pg (27-31); Mean Corpuscular Volume 99 fL (80-97); Mean Platelet Volume 8.1 fL (7.4-10.4); Nucleated Red Blood Cells % 0.1; Platelet Count 138 10^3/ul (150-450); Red Blood Count 3.46 10^6/ul (4.00-5.40); Red Cell Distribution Width 13 % (10.5-15); White Blood Count 3.2 10^3/ul (3.5-10.8)
[2018-09-12 05:43] LABS: BUN/Creatinine Ratio 24.5 (8-20); Calcium 8.9 mg/dL (8.6-10.3); EGFR African American 145.5 (>60); EGFR Non-African American 120.2 (>60); HDL Cholesterol 78.2 mg/dL; Potassium 3.8 mmol/L (3.5-5.0)
[2018-09-12] MEDS ORDERED: Levothyroxine TAB* 150 MCG TAB PO SCH (06:00)
[2018-09-12] MEDS ORDERED: buPROPion SR TAB.SR* 150 MG PO SCH (09:00)
[2018-09-12] MEDS ORDERED: Ferrous Sulfate TAB* 325 MG PO SCH (09:00)
[2018-09-12] MEDS ORDERED: Citalopram TAB* 40 MG PO SCH (09:00)
[2018-09-12] MEDS ORDERED: Pantoprazole TAB * 40 MG TAB PO SCH (09:00)
[2018-09-12] MEDS ORDERED: Aspirin 81 mg CHEW TAB* 81 MG TAB.CHEW PO SCH (09:00)
[2018-09-12 09:17] VITALS: BP 105/47
[2018-09-12] MEDS ORDERED: Ketorolac INJ* 30 MG/ML 1 ML VIAL IM PRN (11:05)
--- NOTE | 2018-09-12 13:08 | DS ---
CC: Dr. Berman.* DISCHARGE SUMMARY: DATE OF ADMISSION: 09/11/18 DATE OF DISCHARGE: 09/12/18 PRINCIPAL DISCHARGE DIAGNOSIS: Atypical chest pain. SECONDARY DISCHARGE DIAGNOSES: 1. History of gastric bypass. 2. Depression. 3. Post traumatic stress disorder. 4. Obstructive sleep apnea. 5. Complex regional pain syndrome. 6. Hypothyroidism. 7. History of cholecystectomy. DIAGNOSTIC STUDIES/LAB DATA: Troponin was 0.00, 0.00, and 0.00. C-reactive protein was less than 1 and ESR was 15. D-dimer was less than 200. A chest x- ray was read as no active cardiopulmonary disease. An EKG at the time of admission showed sinus bradycardia with no ST or T changes and an EKG on the day of discharge showed sinus bradycardia with T-wave flattening inferiorly and no ST changes. HOSPITAL COURSE BY PROBLEM: 1. Atypical chest pain. Ms. Chang admitted to recent snow shovelling after which this chest pressure began. However, she does have a significant family history of early cardiovascular disease, so she was admitted to observation for an ACS rule out. Her troponins were negative x3. There was also some concern for pericarditis given the pleuritic nature of her pain; however, her inflammatory markers were unremarkable. She has no rub and no EKG changes. She has very specific point tenderness, so costochondritis remains on my differential; however, given her significant family history of early cardiovascular disease, I am ordering an outpatient stress test, and she agrees to have this completed. I will give her a dose of Toradol before she leaves to see if she gets some relief. 2. PTSD, depression. Continue home doses of Wellbutrin and Lexapro. 3. Hypothyroidism. Her TSH was within normal limits here and will continue Synthroid 150 mcg daily. 4. LYLA. She does not wear her CPAP. 5. Followup needed. I have asked Ms. Chang to follow up with Dr. Berman within 1 week and I have ordered an outpatient stress test to be completed. She was instructed to return to the emergency department should her pain change, worsen, or should she develop any shortness of breath, lightheadedness, or other new symptoms. [id number]/[facility] #: [id number] [facility] HEALTH SYSTEMAmelia
== END 2018-09-12 11:45 | disposition home or self-care (01) ==
LOC: ED 10:03 → MEDTELE 12:30
PROVIDERS: ADMIT Internal Medicine; ATTEND Internal Medicine
DX: R07.89 Other chest pain (principal); Z98.84 Bariatric surgery status; F32.9 Major depressive disorder, single episode, unspecified; F43.10 Post-traumatic stress disorder, unspecified; G47.33 Obstructive sleep apnea (adult) (pediatric); G90.50 Complex regional pain syndrome I, unspecified; E03.9 Hypothyroidism, unspecified; Z90.49 Acquired absence of other specified parts of digestive tract; R06.02 Shortness of breath
CPT/HCPCS: 36415; 71045; 80048; 80053; 80061; 83036; 83605; 84443; 84484; 85025; 85379; 85610; 85652; 85730; 86140; 87040; 93005; 94660; 96372; 96374; 99284; A9270-GY; G0378; J1644

== ENCOUNTER 2023-01-07 05:33 | Observation (INO) ==
[2023-01-07] MEDS ORDERED: Iodixanol (CONTRAST) 320 MG/ML 100 ML SDV IV ONE (06:25)
[2023-01-07 06:28] LABS: ABS Eosinophils 0.1 10^3/uL (0.0-0.5); ABS Lymphocytes 1.2 10^3/uL (1.0-4.8); ABS Monocytes 0.4 10^3/uL (0.0-0.9); ABS Neutrophils 3.2 10^3/uL (1.5-7.6); Eosinophil % 1.2 %; Hematocrit 35.2 % (35-45); Hemoglobin 12.1 g/dL (11.5-14.3); Lymphocyte % 24.3 %; Mean Corpuscular Hemoglobin 33.2 pg (27-33); Mean Corpuscular Hgb Conc 34.4 g/dL (31-36); Mean Corpuscular Volume 96.5 fL (80-97); Mean Platelet Volume 7.7 fL (7.5-11.2); Nucleated Red Blood Cells % 0.1 /100 WBC (0.0-0.4); Platelet Count 191 10^3/uL (150-450); Red Blood Count 3.65 10^6/uL (3.63-4.92); Red Cell Distribution Width 14.9 % (12-17); White Blood Count 4.8 10^3/uL (3.8-11.8)
[2023-01-07 07:04] LABS: Albumin 4.2 g/dL (3.2-5.2); Albumin/Globulin Ratio 1.8 (1-3); Calcium 9.2 mg/dL (8.6-10.3); Creatinine, Serum 0.61 mg/dL (0.51-0.95); Globulin 2.4 g/dL (2-4); HDL Cholesterol 95.6 mg/dL; Potassium 4.9 mmol/L (3.5-5.0); Total Bilirubin 0.8 mg/dL (0.2-1.0); Total Protein 6.6 g/dL (6.4-8.9); eGFR CKD-EPI 103.6 (>60)
[2023-01-07] MEDS ORDERED: Enoxaparin 40 MG/0.4 ML SYR SUBCUT SCH (09:00)
[2023-01-07 12:00] LABS: Urine Appearance Cloudy; Urine Bilirubin Negative (Negative); Urine Blood Negative (Negative); Urine Color Yellow; Urine Glucose Negative (Negative); Urine Ketones Negative (Negative); Urine Nitrite Positive (Negative); Urine Protein Negative (Negative); Urine Specific Gravity 1.018 (1.002-1.030); Urine Urobilinogen Negative (Negative)
[2023-01-07 12:02] LABS: Activated Partial Thrombo Time 29.7 seconds (26.0-38.0); INR 1.04 (0.88-1.18)
[2023-01-07 12:15] LABS: Urine Bacteria Absent (Absent); Urine Red Blood Cell Trace(0-2/hpf) (Absent); Urine Squamous Epithelial Cell Present (Absent); Urine White Blood Cell Trace(0-5/hpf) (Absent)
[2023-01-07] MEDS ORDERED: Cyanocobalamin INJ 1,000 MCG/ML VIAL 1 ML VIAL IM ONE ×2 (12:55→17:11)
[2023-01-07 13:59] LABS: TSH Ultra Thyroid Stim Horm 3.23 mcIU/mL (0.34-5.60)
[2023-01-07 19:01] VITALS: BP 96/58
== END 2023-01-07 18:45 | disposition home or self-care (01) ==
LOC: ED 05:33 → EDHOLD 05:33
PROVIDERS: ADMIT Hospitalist; ATTEND Hospitalist